=== PATIENT | female | born 1945 | race Caucasian/White ===

== ENCOUNTER 2021-11-04 15:28 | Inpatient (IN) | payer MEDICARE ==
[~2021-11-04] VITALS: Ht 155 cm; Wt 61.0 kg
[2021-11-04] MEDS ORDERED: NORCO 5-325 TA1 EACH PO (19:33)
[2021-11-04 20:16] LABS: BASOPHIL 0.2 % (0-2); EOSINOPHIL 0.3 % (0-7); HCT 37.2 % (37.0-47.0); HGB 12.8 g/dl (12.5-16.0); LYMPHOCYTE 12.3 % (15-48); MCH 30.6 pg (25.0-31.0); MCHC 34.4 g/dL (32.0-36.0); MONOCYTE 4.8 % (0-12); NEUTROPHIL 81.8 % (41-80); NRBC 0; PLT 232 K/uL (150-400); RBC 4.18 M/uL (4.20-5.40); RDW 12.3 % (11.5-14.0); WBC 8.8 K/uL (4.0-10.5)
[2021-11-04 20:20] LABS: INR 0.98 (0.9-1.2); PROTHROMBIN TIME 12.4 SECONDS (11.8-13.4)
[2021-11-04 20:21] LABS: PTT 27.6 SECONDS (24.4-34.7)
[2021-11-04 20:27] LABS: ALBUMIN 4.1 g/dL (3.4-5.0); BILIRUBIN - TOTAL 0.6 mg/dL (0.2-1.0); BUN/CREAT RATIO (CALC) 22.2 RATIO; CREATININE 0.63 mg/dL (0.51-0.95); GLOBULIN (CALCULATION) 3.2 g/dL; POTASSIUM 3.1 mmol/L (3.5-5.1); TOTAL PROTEIN 7.3 g/dL (6.4-8.2)
[2021-11-04 21:20] LABS: BILIRUBIN NEGATIVE (NEGATIVE); BLOOD NEGATIVE Ery/uL (NEGATIVE); CLARITY CLEAR (CLEAR); COLOR YELLOW (YELLOW); GLUCOSE (U) NORMAL (NORMAL); LEUKOCYTES NEGATIVE Leu/uL (NEGATIVE); NITRITE NEGATIVE (NEGATIVE); PROTEIN NEGATIVE (NEGATIVE); SPECIFIC GRAVITY 1.015 (1.001-1.030); UROBILINOGEN 0.2 mg/dL (0.2-1.0); pH 7.5 (5.0-9.0)
[2021-11-04] MEDS ORDERED: SYNTHROID88 MCG PO (21:56)
[2021-11-04] MEDS ORDERED: HCTZ12.5 MG PO (21:56)
[2021-11-05 06:41] LABS: BASOPHIL 0.1 % (0-2); EOSINOPHIL 0.4 % (0-7); HGB 11.5 g/dl (12.5-16.0); LYMPHOCYTE 8.5 % (15-48); MCH 30.3 pg (25.0-31.0); MCHC 33.8 g/dL (32.0-36.0); MCV 89.7 fL (78.0-100.0); MONOCYTE 4.4 % (0-12); MPV 8.5 fL (6.0-9.5); NEUTROPHIL 86.1 % (41-80); NRBC 0; PLT 165 K/uL (150-400); RBC 3.79 M/uL (4.20-5.40); RDW 12.2 % (11.5-14.0); WBC 7.9 K/uL (4.0-10.5)
[2021-11-05 06:48] LABS: INR 1.05 (0.9-1.2); PROTHROMBIN TIME 13.1 SECONDS (11.8-13.4); PTT 30.4 SECONDS (24.4-34.7)
[2021-11-05 07:01] LABS: ALBUMIN 3.3 g/dL (3.4-5.0); BILIRUBIN - TOTAL 0.9 mg/dL (0.2-1.0); BUN/CREAT RATIO (CALC) 25.5 RATIO; CREATININE 0.51 mg/dL (0.51-0.95); GLOBULIN (CALCULATION) 2.8 g/dL; MAGNESIUM 1.8 mg/dL (1.8-2.4); PHOSPHORUS 2.5 mg/dL (2.6-4.7); TOTAL PROTEIN 6.1 g/dL (6.4-8.2)
[2021-11-06 05:58] LABS: BASOPHIL 0.2 % (0-2); EOSINOPHIL 0 % (0-7); HCT 36.9 % (37.0-47.0); HGB 12.4 g/dl (12.5-16.0); LYMPHOCYTE 8.4 % (15-48); MCH 30.5 pg (25.0-31.0); MCHC 33.6 g/dL (32.0-36.0); MCV 90.7 fL (78.0-100.0); MONOCYTE 2.1 % (0-12); MPV 8.5 fL (6.0-9.5); NEUTROPHIL 88.8 % (41-80); NRBC 0; PLT 152 K/uL (150-400); RBC 4.07 M/uL (4.20-5.40); RDW 12.2 % (11.5-14.0); WBC 6.1 K/uL (4.0-10.5)
[2021-11-06 06:23] LABS: BUN/CREAT RATIO (CALC) 18.2 RATIO; CREATININE 0.55 mg/dL (0.51-0.95); POTASSIUM 3.7 mmol/L (3.5-5.1)
--- NOTE | 2021-11-07 14:55 | NUR ---
HAD TO CALL PT VIA PHONE SHE IS IN ISOLATION DUE TO COVID. PT. GAVE PERMISSION TO CONTACT AGUSTIN'Sara FOR 07/11 AND RW AND TO CONTACT DINAH/PHANI LYMAN.
[2021-11-08 06:53] LABS: BASOPHIL 0.1 % (0-2); EOSINOPHIL 2.3 % (0-7); HCT 29.3 % (37.0-47.0); HGB 9.8 g/dl (12.5-16.0); LYMPHOCYTE 19.7 % (15-48); MCH 30.7 pg (25.0-31.0); MCHC 33.4 g/dL (32.0-36.0); MCV 91.8 fL (78.0-100.0); MONOCYTE 8.9 % (0-12); MPV 8.6 fL (6.0-9.5); NEUTROPHIL 68.7 % (41-80); NRBC 0; PLT 120 K/uL (150-400); RBC 3.19 M/uL (4.20-5.40); RDW 12.3 % (11.5-14.0); WBC 7.3 K/uL (4.0-10.5)
[2021-11-08 07:25] LABS: BUN/CREAT RATIO (CALC) 21.8 RATIO; CREATININE 0.55 mg/dL (0.51-0.95); POTASSIUM 3.3 mmol/L (3.5-5.1)
[2021-11-09 09:01] LABS: BASOPHIL 0.3 % (0-2); EOSINOPHIL 1.9 % (0-7); HCT 29.1 % (37.0-47.0); HGB 9.6 g/dl (12.5-16.0); LYMPHOCYTE 20.3 % (15-48); MCH 30.2 pg (25.0-31.0); MCV 91.5 fL (78.0-100.0); MONOCYTE 8.3 % (0-12); MPV 8.9 fL (6.0-9.5); NEUTROPHIL 68.7 % (41-80); NRBC 0; PLT 136 K/uL (150-400); RBC 3.18 M/uL (4.20-5.40); RDW 12.5 % (11.5-14.0); WBC 7.3 K/uL (4.0-10.5)
[2021-11-09] MEDS ORDERED: ASPIRIN81 MG PO (15:17)
[2021-11-09] MEDS ORDERED: SYMBICORT 80-10.2 GM INH (15:17)
== END 2021-11-09 16:07 | disposition home or self-care (01) | DRG 521 ==
LOC: FER 15:28 → FMS 20:10
PROVIDERS: Nurse Practitioner; Orthopaedic Surgery; Physician Assistant; ADMIT Internal Medicine
PROC: B24BZZZ Ultrasonography of Heart with Aorta (ICD-10-PCS; 2021-11-06)
PROC: 0SRB0JA Replacement of Left Hip Joint with Synthetic Substitute, Uncemented, Open Approach (ICD-10-PCS; principal; 2021-11-07 07:00)
DX: S72.002A Fracture of unspecified part of neck of left femur, initial encounter for closed fracture (principal); U07.1 COVID-19; J96.01 Acute respiratory failure with hypoxia; J12.82 Pneumonia due to coronavirus disease 2019; E87.1 Hypo-osmolality and hyponatremia; I11.9 Hypertensive heart disease without heart failure; Z66 Do not resuscitate; E03.9 Hypothyroidism, unspecified; E87.6 Hypokalemia; W10.8XXA Fall (on) (from) other stairs and steps, initial encounter; Z79.899 Other long term (current) drug therapy; Z80.1 Family history of malignant neoplasm of trachea, bronchus and lung; Y92.009 Unspecified place in unspecified non-institutional (private) residence as the place of occurrence of the external cause
CPT/HCPCS: 36415; 71045; 73501; 73552; 76000; 80048; 80053; 81003; 83735; 84100; 85025; 85610; 85730; 86850; 86900; 86901; 93005; 94010; 94667; 94668; 94760; 94762; 96374; 96375; 97110; 97162; 97165; 97530; 97530-GP; 97535; C1776; C9399; J0171; J0697; J1170; J1644; J1885; J2250; J2270; J2370; J2405; J2704; J2795; J3010; J7030; J7050; J7120; J8540; U0002